=== PATIENT | male | born 1950 | race Caucasian/White ===

== ENCOUNTER 2016-11-21 11:18 | Inpatient (IN) ==
[2016-11-21] MEDS ORDERED: Acetaminophen 325 MG TABLET PO PRN (14:21)
[2016-11-21] MEDS ORDERED: Naloxone 0.4 MG/ML INJ IVP PRN (14:21)
[2016-11-21] MEDS ORDERED: Ondansetron 4 MG/2 ML VIAL IVP PRN (14:21)
[2016-11-21 15:02] LABS: Basophils % 0.3 %; Eosinophils # 0.2 K/mcL (0.0-0.6); Eosinophils % 2.2 %; Hematocrit 42.7 % (37.5-50.1); Hemoglobin 14.5 g/dL (12.9-16.9); Immature Granulocytes % 0.4 % (0-4); Lymphocytes # 1.7 K/mcL (0.6-4.6); Mean Corpuscular Hemoglobin 28.2 pg (28.0-33.3); Mean Corpuscular Volume 83.1 fL (83.0-100.0); Mean Platelet Volume 9.4 fL (9.4-12.4); Monocytes # 0.6 K/mcL (0.0-1.3); Monocytes % 5.9 %; Neutrophils # 6.8 K/mcL (1.6-8.9); Platelet Count 220 K/mcL (140-400); Red Blood Count 5.14 M/mcL (4.19-5.50); Red Cell Distribution Width 12.4 % (11.5-14.5); Segmented Neutrophils % 73.2 %
[2016-11-21 15:08] LABS: BUN/Creatinine Ratio 15 (6-26); Blood Urea Nitrogen 19 mg/dL (8-26); Calcium 9.1 mg/dL (8.6-10.8); Carbon Dioxide 26 mEq/L (19-29); Chloride 102 mEq/L (98-109); Glucose 232 mg/dL (70-99); Osmolality,Calculated 292 (280-300); Potassium 4.4 mEq/L (3.5-4.5); Sodium 136 mEq/L (136-145); eGFR For African Americans > 60 (> 60); eGFR For Non-African Americans 56 (> 60)
[2016-11-21] MEDS: *HR* HYDROmorphone (PF) 1 MG/ML SYRINGE IVP PRN ×2 (16:22→20:23)
[2016-11-21] MEDS: Piperacillin/Tazobactam 3.375 GM in D5% in Water (Mini-Bag+) 100 ML IVPB SCH (16:23)
[2016-11-21] MEDS: 0.9 % Sodium Chloride 1,000 ML IVC SCH (16:23)
--- NOTE | 2016-11-21 17:24 | Internal Med History&Physical ---
Date of Encounter: 11/21/16 Time of Encounter: 17:19 Assessment and Plan (1) Uncontrolled type 2 diabetes mellitus Current visit: Yes Status: Acute We will start insulin Levemir, nutritional NovoLog and sliding scale. Check hemoglobin A1c. Hold his oral meds. Qualifiers: Diabetes mellitus complication status: with ophthalmic complications Diabetes mellitus complication detail: with diabetic retinopathy Diabetic retinopathy severity: with unspecified retinopathy severity Diabetes mellitus macular edema: without macular edema Diabetes mellitus chef assistant insulin use: with chef assistant use Laterality: unspecified laterality Qualified Code(s): E11.319 - Type 2 diabetes mellitus with unspecified diabetic retinopathy without macular edema; E11.65 - Type 2 diabetes mellitus with hyperglycemia; Z79.4 - FPC (current) use of insulin (2) COPD (chronic obstructive pulmonary disease) Current visit: Yes Status: Acute Inhaled bronchodilators as needed. No evidence of acute exacerbation. Qualifiers: COPD type: chronic bronchitis Chronic bronchitis type: simple Qualified Code(s): J41.0 - Simple chronic bronchitis (3) Otitis externa of right ear Current visit: No Status: Acute He failed outpatient treatment with ciprofloxacin. Due to uncontrolled diabetes and treatment with steroids which makes him immunosuppressed we'll treat the patient with IV Zosyn to cover Pseudomonas, gram-negative rods and anaerobes and add vancomycin for coverage of gram-positive cocci including MRSA. Follow-up fluid cultures sent from the office and adjust antibiotic therapy accordingly. He is at high risk for morbidity and mortality from complications due to severe ear infection and treatment with IV vancomycin which require intensive blood level monitoring for toxicity. Qualifiers: Otitis externa type: other infective Chronicity: acute Qualified Code(s) : H60.391 - Other infective otitis externa, right ear (4) Mastoiditis of right side Current visit: Yes Status: Acute Given his extension of symptoms to the right side and has had an right-sided headache and tenderness to palpation mastoiditis is a strong consult radiation and therefore will order a CT of the temporal bone to evaluate for this. (5) Otitis media Current visit: Yes Status: Acute Given his severe symptoms otitis media is highly suspected. We will treat him with broad-spectrum IV antibiotics, IV fluids, oral oxycodone and IV hydromorphone for pain. Qualifiers: Otitis media type: suppurative Laterality: right Chronicity: acute Recurrence: not specified as recurrent Spontaneous tympanic membrane rupture: without spontaneous rupture Qualified Code(s): H66.001 - Acute suppurative otitis media without spontaneous rupture of ear drum, right ear (6) DVT prophylaxis Current visit: Yes Status: Acute Encourage early ambulation. He does not require pharmacological prophylaxis as he is fully ambulatory. (7) Essential hypertension Current visit: Yes Status: Acute Resume home meds. Pain control. Internal Medicine - H&P: HPI Admitted From: Direct Admit Plans for Post Hospital Care: Home History of present illness: Mr. Vernon is a 66 year old male with past medical history significant for type 2 diabetes with past medical history who presented to the hospital as a direct admission from ENT office for ear pain. He has been having 1 week of severe right ear pain that for the last 5 days has been getting worse and involving the right side of the jaw, right side of the neck, described as soreness and throbbing, not relieved by pain medication. Denies associated fevers and chills. He states that his hearing in that ear has been getting slightly worse however he has impaired hearing bilaterally. He reports abundant purulent discharge from the right ear. He has been treated with Cipro outpatient for the last 1 week however in spite of that his symptoms have not gotten better. Today he was evaluated by his ENT doctor in the office who drained a large amount of pus from his external ear or canal and referred him for direct admission due to failure to respond to outpatient antibiotics. He reports vision impairment chronically, reports nausea, reports depression, chronic shortness of breath and dyspnea on exertion secondary to interstitial lung disease. Reports seasonal allergies. A 10 point review of systems was negative except per the history of present illness. Past medical history significant for essential hypertension type 2 diabetes chronic interstitial lung disease requiring long-term steroid therapy. Past surgical history knee insert and shoulder surgery Family history patient's mother suffered with CA at age 75 patient's father suffered with cancer. Patient has multiple siblings who suffered a colon cancer and bone cancer. Social history: Denies tobacco alcohol and drug use. Past Med Surg Social Fam HX - Past Medical History Medical history: COPD, diabetes, hyperlipidemia, hypertension Psychiatric history: anxiety, depression - Social History Smoking Status: Never smoker Smokeless Tobacco Status: No Alcohol use: none Drug use: none - Family History Mother Hx Family Cardiac Disorders: Yes (HTN, CHF) Hx Family Respiratory Disorders: Yes (COPD) Hx Family GI Disorders: No Hx Family Endocrine Disorder: No Hx Family Neuromuscular Disorders: No Hx Family Neurologic Disorders: No Hx Family HEENT Disorders: No Hx Family Autoimmune Disorders: No Father Hx Family Cardiac Disorders: No Hx Family Respiratory Disorders: No Hx Family Cancer: Yes (Bone, Skin, Lung) Hx Family GI Disorders: No Hx Family Endocrine Disorder: No Hx Family Neuromuscular Disorders: No Hx Family Neurologic Disorders: No Hx Family HEENT Disorders: No Hx Family Autoimmune Disorders: No Internal Medicine - H&P: Meds Albuterol Sulfate [Proair Hfa] 2 puff IH Q6H PRN 01/15/16 [History] Bupropion HCl [Wellbutrin Xl] 300 mg PO QAM 01/15/16 [History] Fluticasone/Salmeterol [Advair 250-50 Diskus] 1 each IH BID 01/15/16 [History] Furosemide [Lasix] 40 mg PO DAILY 01/15/16 [History] Glimepiride [Amaryl] 2 mg PO BID 01/15/16 [History] Insulin DETEMIR [Levemir Flextouch] 150 unit SQ BID 01/15/16 [History] Insulin LISPRO [Humalog Kwikpen U-100] 102 unit SQ BID 01/15/16 [History] Loratadine [Claritin] 10 mg PO DAILY 01/15/16 [History] Losartan Potassium [Cozaar] 100 mg PO DAILY 01/15/16 [History] Metformin HCl [Glucophage Xr] 1,000 mg PO BID 01/15/16 [History] Mometasone Furoate [Nasonex] 2 spray NS DAILY PRN 01/15/16 [History] Omeprazole [PriLOSEC] 40 mg PO DAILY 01/15/16 [History] Oxygen 4 l NS AD 01/15/16 [History] Potassium Chloride [K-Tab ER] 20 meq PO DAILY 01/15/16 [History] Ranitidine HCl [Zantac] 150 mg PO BID 01/15/16 [History] Saxagliptin HCl [Onglyza] 5 mg PO DAILY 01/15/16 [History] Simvastatin [Zocor] 40 mg PO DAILY 01/15/16 [History] Tizanidine HCl 4 mg PO HS PRN 01/15/16 [History] Ciprofloxacin [Cipro] 500 mg PO BID #20 tablet 11/16/16 [Rx] OxyCODONE/APAP 10/325 [Percocet 10/325 MG] 1 each PO Q6HR PRN #15 tablet [Rx] Allergies No Known Allergies Allergy (Verified 01/15/16 11:43) All Systems PM: A 10-system review of systems was performed and is negative for pertinent findings except as documented above in the HPI. - Constitutional Vitals: Temp Pulse Resp BP Pulse Ox 98.3 F 80 16 180/84 95 11/21/16 16:06 11/21/16 16:06 11/21/16 16:06 11/21/16 16:06 11/21/16 16:06 General appearance: Present: A&O X 3 - Eye Eye exam: Present: PERRL, conjuntiva pink, sclera anicteric Pupils: Present: PERRL - ENT Additional comments: Normal TM on the left, normal left external auditory canal. Right ear with small amount of pus draining from the external ear canal. motion tenderness of the right earlobe. tenderness to palpation of the mastoid. - Respiratory Respiratory exam: Present: CTAB. Absent: accessory muscle use, rales, rhonchi, wheezes - Cardiovascular Cardiovascular exam: Present: RRR, +S1, +S2. Absent: diastolic murmur, gallop, rubs, systolic murmur - GI/Abdominal GI/Abdominal exam: Present: normal bowel sounds, soft, no peritoneal signs. Absent: distended, tenderness - Extremities Exam Extremities exam: Present: warm, radial pulses palpable and symetrical. Absent : calf tenderness, cyanotic, pedal edema - Neurological Exam Neurological exam: Present: CN II-XII intact, oriented X3, no focal deficits. Absent: pronater drift, facial droop, speech deficit - Skin Skin exam: Present: dry, intact Internal Med - H&P Results - Labs CBC & Chem 7: 11/21/16 14:44 11/21/16 14:44 Labs: Short CBC 11/21/16 Range/Units 14:44 WBC 9.3 (4.3-11.1) K/mcL Hgb 14.5 (12.9-16.9) g/dL Hct 42.7 (37.5-50.1) % Plt Count 220 (140-400) K/mcL Neutrophils # 6.8 (1.6-8.9) K/mcL BMP 11/21/16 14:44 Sodium 136 Potassium 4.4 Chloride 102 Carbon Dioxide 26 BUN 19 Creatinine 1.30 H Glucose 232 H Calcium 9.1 - EKG Data -: EKG Interpreted by Myself (From prior record performed 11/16/2016, nonspecific T-wave changes) EKG shows normal: sinus rhythm (Rate 78), axis Rate: normal
[2016-11-21] MEDS: *HR* OxyCODONE Immed Rel 5 MG TABLET PO PRN (18:22)
[2016-11-21] MEDS: Ciprofloxacin/Dex *EAR* Susp 7.5 ML BOTTLE RIGHT EAR SCH (20:54)
[2016-11-22] MEDS: *HR* HYDROmorphone (PF) 1 MG/ML SYRINGE IVP PRN ×4 (00:18→20:12)
[2016-11-22] MEDS: Piperacillin/Tazobactam 3.375 GM in D5% in Water (Mini-Bag+) 100 ML IVPB SCH ×3 (00:23→17:26)
[2016-11-22] MEDS: *HR* OxyCODONE Immed Rel 5 MG TABLET PO PRN ×2 (01:16→08:15)
[2016-11-22] MEDS: 0.9 % Sodium Chloride 1,000 ML IVC SCH (08:12)
[2016-11-22] MEDS: Ciprofloxacin/Dex *EAR* Susp 7.5 ML BOTTLE RIGHT EAR SCH ×2 (08:13→20:14)
[2016-11-22] MEDS ORDERED: Benzonatate 100 MG CAPSULE PO PRN (08:42)
[2016-11-22] MEDS ORDERED: NON-FORMULARY MEDICATION 1 EACH EACH (Mometasone Furoate [Nasonex] 2 SPRAY) NS PRN (08:42)
[2016-11-22] MEDS ORDERED: tiZANidine 4 MG TABLET PO PRN (08:42)
[2016-11-22] MEDS ORDERED: Dextrose Gel 15 GM PO PRN ×2 (08:44)
[2016-11-22] MEDS ORDERED: *HR* Dextrose 50 % in Water (Syg) 50 ML SYRINGE IVP PRN (08:44)
[2016-11-22] MEDS ORDERED: D5% in Water 1,000 ML IV PRN (08:44)
[2016-11-22] MEDS ORDERED: Vancomycin 1,000 MG in D5% in Water 250 ML IVPB SCH (09:00)
[2016-11-22 09:20] LABS: Basophils % 0.4 %; Eosinophils # 0.2 K/mcL (0.0-0.6); Eosinophils % 2.6 %; Hematocrit 42.7 % (37.5-50.1); Hemoglobin 14.2 g/dL (12.9-16.9); Immature Granulocytes % 0.4 % (0-4); Immature Platelets 2.6 % (1.1-6.1); Lymphocytes # 1.7 K/mcL (0.6-4.6); Mean Corpuscular HGB Conc 33.3 g/dL (31.6-35.5); Mean Corpuscular Hemoglobin 28.1 pg (28.0-33.3); Mean Corpuscular Volume 84.4 fL (83.0-100.0); Mean Platelet Volume 9.3 fL (9.4-12.4); Monocytes # 0.5 K/mcL (0.0-1.3); Monocytes % 6.6 %; Neutrophils # 5.7 K/mcL (1.6-8.9); Platelet Count 233 K/mcL (140-400); Red Blood Count 5.06 M/mcL (4.19-5.50); Red Cell Distribution Width 12.6 % (11.5-14.5)
[2016-11-22 09:34] LABS: BUN/Creatinine Ratio 12 (6-26); Blood Urea Nitrogen 14 mg/dL (8-26); Calcium 8.9 mg/dL (8.6-10.8); Carbon Dioxide 29 mEq/L (19-29); Chloride 98 mEq/L (98-109); Glucose 283 mg/dL (70-99); Magnesium 1.9 mg/dL (1.6-2.6); Osmolality,Calculated 287 (280-300); Potassium 4.6 mEq/L (3.5-4.5); Sodium 133 mEq/L (136-145); eGFR For African Americans > 60 (> 60); eGFR For Non-African Americans > 60 (> 60)
[2016-11-22] MEDS: Loratadine 10 MG TABLET PO SCH (10:32)
[2016-11-22] MEDS: Furosemide 40 MG TABLET PO SCH (10:32)
[2016-11-22] MEDS: BuPROPion XL (24 HR) 150 MG TABLET PO SCH (10:33)
[2016-11-22] MEDS: Azelastine 0.1% Nasal Spray 30 ML BOTTLE NS SCH ×2 (10:33→20:14)
[2016-11-22] MEDS: Fluticasone Propionate Nasal 50 MCG/SPRAY BOTTLE NS SCH (10:33)
[2016-11-22] MEDS ORDERED: Vancomycin 1,500 MG in D5% in Water 250 ML IVPB ONE (11:00)
[2016-11-22] MEDS: Budesonide/Formoterol 80/4.5 MDI IH SCH ×2 (11:47→20:51)
[2016-11-22] MEDS: Insulin LISPRO 300 UNITS/3 ML VIAL SQ SCH ×3 (11:52→20:25)
[2016-11-22] MEDS: Insulin DETEMIR 100 UNIT/ML X5UNITS SQ SCH ×2 (11:52→20:12)
--- NOTE | 2016-11-22 13:42 | ENT - Progress Note ---
Date of Encounter: 11/22/16 Time of Encounter: 10:30 - Assessment and Plan (1) Otitis media Current Visit: Yes Status: Acute Persistent R AOM and R OE. On Ciprodex and Zosyn/Vanc. Awaiting culture results. Still looks the same as yesterday. CT didn't show coalescence of the mastoid or even complete opacification. No soft tissue disease. No facial nerve effect or meingeal signs. Normal WBC and afebrile. Sugars still in the 200's. 1. Continue IV ABx, drop tx 2. Await culture results 3. Ambulate 4. Will continue to follow Please call with questions. Giacomo Whatley MD [phone] Qualifiers: Otitis media type: suppurative Laterality: right Chronicity: acute Recurrence: not specified as recurrent Spontaneous tympanic membrane rupture: without spontaneous rupture Qualified Code(s): H66.001 - Acute suppurative otitis media without spontaneous rupture of ear drum, right ear Subjective Patient reports: no new complaints, still having pain, other Narrative: Patient still w/ drainage from the R ear, has had 2 abx drop treatments since being here. Had CT head/neck last night (didn't do T-bone). Objective Initial Vital Signs Temp Pulse Resp BP Pulse Ox 97.7 F 74 16 203/83 96 11/21/16 11:53 11/21/16 11:53 11/21/16 11:53 11/21/16 11:53 11/21/16 11:53 - General physical appearance moderate distress - ENT Other (R otorrhea and mild-mod canal swelling persistent) - Neck other (No meningeal signs on testing of neck flexion) - Neurologic other (FN intact) - Labs 11/22/16 09:06 11/22/16 09:06 Diabetes panel 11/21/16 11/22/16 Range/Units 14:44 09:06 Sodium 136 133 L (136-145) mEq/L Potassium 4.4 4.6 H (3.5-4.5) mEq/L Chloride 102 98 (98-109) mEq/L Carbon Dioxide 26 29 (19-29) mEq/L BUN 19 14 (8-26) mg/dL Creatinine 1.30 H 1.18 (0.72-1.25) mg/dL Glucose 232 H 283 H (70-99) mg/dL Calcium 9.1 8.9 (8.6-10.8) mg/dL Calcium panel 11/21/16 11/22/16 Range/Units 14:44 09:06 Calcium 9.1 8.9 (8.6-10.8) mg/dL Phosphorus 3.0 (2.3-4.7) mg/dL Pituitary panel 11/21/16 11/22/16 Range/Units 14:44 09:06 Sodium 136 133 L (136-145) mEq/L Potassium 4.4 4.6 H (3.5-4.5) mEq/L Chloride 102 98 (98-109) mEq/L Carbon Dioxide 26 29 (19-29) mEq/L BUN 19 14 (8-26) mg/dL Creatinine 1.30 H 1.18 (0.72-1.25) mg/dL Glucose 232 H 283 H (70-99) mg/dL Calcium 9.1 8.9 (8.6-10.8) mg/dL Adrenal panel 11/21/16 11/22/16 Range/Units 14:44 09:06 Sodium 136 133 L (136-145) mEq/L Potassium 4.4 4.6 H (3.5-4.5) mEq/L Chloride 102 98 (98-109) mEq/L Carbon Dioxide 26 29 (19-29) mEq/L BUN 19 14 (8-26) mg/dL Creatinine 1.30 H 1.18 (0.72-1.25) mg/dL Glucose 232 H 283 H (70-99) mg/dL Calcium 9.1 8.9 (8.6-10.8) mg/dL Consult Discharge Plan - Plan Referrals: Louie Perez MD [Primary Care Provider] -
--- NOTE | 2016-11-22 15:10 | Internal Med Progress Note ---
Date of Encounter: 11/22/16 Time of Encounter: 15:08 - Assessment and plan (1) Otitis media Current Visit: Yes Status: Acute Assessment and plan: ENT consultation appreciated with Dr. Whatley Will continue IV abx and drop tx f/u cultures Pain control Qualifiers: Otitis media type: suppurative Laterality: right Chronicity: acute Recurrence: not specified as recurrent Spontaneous tympanic membrane rupture: without spontaneous rupture Qualified Code(s): H66.001 - Acute suppurative otitis media without spontaneous rupture of ear drum, right ear (2) Mastoiditis of right side Current Visit: Yes Status: Acute Assessment and plan: Will obtain CT of the temporal bones for further evaluation (3) COPD (chronic obstructive pulmonary disease) Current Visit: Yes Status: Acute Assessment and plan: Not in acute exacerbation continue bronchodilator support as needed continue home dosing of O2 supplementation as needed Bipap at bedtime Qualifiers: COPD type: chronic bronchitis Chronic bronchitis type: simple Qualified Code(s): J41.0 - Simple chronic bronchitis (4) DVT prophylaxis Current Visit: Yes Status: Acute Assessment and plan: Heparin SQ (5) Essential hypertension Current Visit: Yes Status: Acute Assessment and plan: Started home medications Added Hydralazine 10mg IV q6h PRN SBP>160 continue to monitor BP closely (6) Uncontrolled type 2 diabetes mellitus Current Visit: Yes Status: Acute Assessment and plan: Restarted home insulin regimen will continue to monitor fingerstick and blood glucose continue sliding scale insulin algorithm Qualifiers: Diabetes mellitus complication status: with ophthalmic complications Diabetes mellitus complication detail: with diabetic retinopathy Diabetic retinopathy severity: with unspecified retinopathy severity Diabetes mellitus macular edema: without macular edema Diabetes mellitus assisted insulin use: with assisted use Laterality: unspecified laterality Qualified Code(s): E11.319 - Type 2 diabetes mellitus with unspecified diabetic retinopathy without macular edema; E11.65 - Type 2 diabetes mellitus with hyperglycemia; Z79.4 - skilled nursing (current) use of insulin - Subjective Interval history: Patient seen and examined with daughter present at bedside. Resting in chair and states he feels slightly better compared to the previous day. Continues to have purulent discharge from the right ear. 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 - Constitutional Vitals: Temp Pulse Resp BP Pulse Ox 98.1 F 72 18 171/78 95 11/22/16 11:26 11/22/16 11:26 11/22/16 11:47 11/22/16 11:26 11/22/16 11:47 General appearance: Present: cooperative, A&O X 3, pleasant, no acute distress, obese, answers questions appropriately - Head Head exam: Present: atraumatic, normocephalic - Eye Eye exam: Present: conjuntiva pink, sclera anicteric - ENT Additional comments: purulent discharge noted from right ear - Respiratory Respiratory exam: Present: CTAB. Absent: respiratory distress, wheezes - Cardiovascular Cardiovascular exam: Present: RRR, +S1, +S2. Absent: diastolic murmur, gallop, rubs, systolic murmur - GI/Abdominal GI/Abdominal exam: Present: normal bowel sounds, soft, no peritoneal signs. Absent: distended, tenderness - Extremities Exam Extremities exam: Present: warm, radial pulses palpable and symetrical. Absent : calf tenderness, cyanotic, pedal edema - Neurological Exam Neurological exam: Present: alert, oriented X3 - Psychiatric Psychiatric exam: Present: normal affect, normal mood Internal Medicine: Result - Labs CBC & Chem 7: 11/22/16 09:06 11/22/16 09:06 Labs: Short CBC 11/22/16 Range/Units 09:06 WBC 8.2 (4.3-11.1) K/mcL Hgb 14.2 (12.9-16.9) g/dL Hct 42.7 (37.5-50.1) % Plt Count 233 (140-400) K/mcL Neutrophils # 5.7 (1.6-8.9) K/mcL BMP 11/21/16 11/22/16 14:44 09:06 Sodium 136 133 L Potassium 4.4 4.6 H Chloride 102 98 Carbon Dioxide 26 29 BUN 19 14 Creatinine 1.30 H 1.18 Glucose 232 H 283 H Calcium 9.1 8.9 - Impressions Impressions Head CT 11/21/16 17:11 IMPRESSION: No acute intracranial abnormality. Severe right mastoiditis. Also complete opacification of the right middle ear and some of the external auditory canal. D/ / Ronen Hinton MD / Ronen Hinton MD Interpreting Provider: Ronen Hinton MD Soft Tissue Neck CT 11/21/16 17:13 IMPRESSION: Limited noncontrast exam. No obvious acute abnormality of the neck identified. Imaging findings consistent with the history of otitis externa and otomastoiditis. Consider CT of the temporal bones for further evaluation. D/ / Earl Talamantes MD / Earl Talamantes MD Interpreting Provider: Earl Talamantes MD Consult Discharge Plan - Plan Referrals: Louie Perez MD [Primary Care Provider] -
[2016-11-22] MEDS: *HR* Heparin 5,000 UNIT/ML VIAL SQ SCH (17:25)
[2016-11-22] MEDS: traZODone 50 MG TABLET PO SCH (20:12)
[2016-11-23] MEDS: Piperacillin/Tazobactam 3.375 GM in D5% in Water (Mini-Bag+) 100 ML IVPB SCH ×4 (01:03→23:58)
[2016-11-23 05:11] LABS: Basophils # 0.1 K/mcL (0.0-0.2); Basophils % 0.5 %; Eosinophils # 0.2 K/mcL (0.0-0.6); Eosinophils % 1.4 %; Hematocrit 42.7 % (37.5-50.1); Hemoglobin 14.7 g/dL (12.9-16.9); Immature Granulocytes % 0.7 % (0-4); Lymphocytes # 1.6 K/mcL (0.6-4.6); Lymphocytes % 15.1 %; Mean Corpuscular HGB Conc 34.4 g/dL (31.6-35.5); Mean Corpuscular Hemoglobin 28.9 pg (28.0-33.3); Mean Corpuscular Volume 83.9 fL (83.0-100.0); Mean Platelet Volume 9.8 fL (9.4-12.4); Monocytes # 0.7 K/mcL (0.0-1.3); Monocytes % 6.4 %; Neutrophils # 8.1 K/mcL (1.6-8.9); Platelet Count 241 K/mcL (140-400); Red Blood Count 5.09 M/mcL (4.19-5.50); Red Cell Distribution Width 12.4 % (11.5-14.5); Segmented Neutrophils % 75.9 %
[2016-11-23 05:43] LABS: BUN/Creatinine Ratio 14 (6-26); Blood Urea Nitrogen 18 mg/dL (8-26); Calcium 9.2 mg/dL (8.6-10.8); Carbon Dioxide 25 mEq/L (19-29); Chloride 99 mEq/L (98-109); Glucose 262 mg/dL (70-99); Magnesium 1.9 mg/dL (1.6-2.6); Osmolality,Calculated 291 (280-300); Phosphorous 3.3 mg/dL (2.3-4.7); Potassium 4.2 mEq/L (3.5-4.5); Sodium 135 mEq/L (136-145); eGFR For African Americans > 60 (> 60); eGFR For Non-African Americans 58 (> 60)
[2016-11-23] MEDS: *HR* Heparin 5,000 UNIT/ML VIAL SQ SCH ×2 (06:07→18:07)
[2016-11-23] MEDS: Azelastine 0.1% Nasal Spray 30 ML BOTTLE NS SCH ×2 (08:01→21:09)
[2016-11-23] MEDS: Ciprofloxacin/Dex *EAR* Susp 7.5 ML BOTTLE RIGHT EAR SCH ×2 (08:01→21:09)
[2016-11-23] MEDS: Fluticasone Propionate Nasal 50 MCG/SPRAY BOTTLE NS SCH (08:01)
[2016-11-23] MEDS: BuPROPion XL (24 HR) 150 MG TABLET PO SCH (08:02)
[2016-11-23] MEDS: Furosemide 40 MG TABLET PO SCH (08:02)
[2016-11-23] MEDS: Loratadine 10 MG TABLET PO SCH (08:02)
[2016-11-23] MEDS: Insulin LISPRO 300 UNITS/3 ML VIAL SQ SCH ×7 (08:03→21:10)
[2016-11-23] MEDS: Budesonide/Formoterol 80/4.5 MDI IH SCH ×2 (08:10→19:51)
[2016-11-23] MEDS ORDERED: Insulin DETEMIR 100 UNIT/ML X5UNITS SQ SCH ×3 (09:00)
[2016-11-23] MEDS: Insulin DETEMIR 100 UNIT/ML X5UNITS SQ SCH ×4 (10:31→21:11)
[2016-11-23] MEDS: Vancomycin 1,250 MG in D5% in Water 250 ML IVPB SCH (12:20)
--- NOTE | 2016-11-23 13:55 | Internal Med Progress Note ---
Date of Encounter: 11/23/16 Time of Encounter: 13:00 - Assessment and plan (1) Otitis media Current Visit: Yes Status: Acute Assessment and plan: ENT consultation appreciated with Dr. Whatley Will continue IV abx and drop tx f/u cultures Pain control (adjusted pain medications) NPO after midnight for possible ear tube placement if symptoms persist Qualifiers: Otitis media type: suppurative Laterality: right Chronicity: acute Recurrence: not specified as recurrent Spontaneous tympanic membrane rupture: without spontaneous rupture Qualified Code(s): H66.001 - Acute suppurative otitis media without spontaneous rupture of ear drum, right ear (2) Mastoiditis of right side Current Visit: Yes Status: Acute Assessment and plan: CT of internal auditory canal noted: NO erosive changes reported continue management as listed above (3) COPD (chronic obstructive pulmonary disease) Current Visit: Yes Status: Acute Assessment and plan: Not in acute exacerbation continue bronchodilator support as needed continue home dosing of O2 supplementation as needed Bipap at bedtime Qualifiers: COPD type: chronic bronchitis Chronic bronchitis type: simple Qualified Code(s): J41.0 - Simple chronic bronchitis (4) DVT prophylaxis Current Visit: Yes Status: Acute Assessment and plan: Heparin SQ (5) Essential hypertension Current Visit: Yes Status: Acute Assessment and plan: continue home medications continue Hydralazine 10mg IV q6h PRN SBP>160 continue to monitor BP closely (6) Uncontrolled type 2 diabetes mellitus Current Visit: Yes Status: Acute Assessment and plan: Hyperglycemia persists despite basal insulin coverage Increased Levemir to 118units BID according to the additional insulin coverage required over the last 24hours Added Humalog 5units TIDAC will continue to monitor fingerstick and blood glucose continue sliding scale insulin algorithm Qualifiers: Diabetes mellitus complication status: with ophthalmic complications Diabetes mellitus complication detail: with diabetic retinopathy Diabetic retinopathy severity: with unspecified retinopathy severity Diabetes mellitus macular edema: without macular edema Diabetes mellitus care home insulin use: with terminal supervisor use Laterality: unspecified laterality Qualified Code(s): E11.319 - Type 2 diabetes mellitus with unspecified diabetic retinopathy without macular edema; E11.65 - Type 2 diabetes mellitus with hyperglycemia; Z79.4 - assisted (current) use of insulin - Subjective Interval history: Patient seen and examined with daughter present at bedside. Reports of feeling better compared to the previous day. I had a detailed discussion with Dr. Whatley in regards to patient's care plan. It is of a concern that despite ABX therapy patient continues to require consistent pain medications and if symptoms are not improving, patient may benefit from an Ear tube. at this time, will d/c dilaudid and start Oxycodone 7.5/325mg PO q4h prn pain and maintain NPO after midnight for possible procedure in am. - Constitutional Vitals: Temp Pulse Resp BP Pulse Ox 97.9 F 87 16 160/84 94 L 11/23/16 10:50 11/23/16 10:50 11/23/16 10:50 11/23/16 10:50 11/23/16 10:50 General appearance: Present: cooperative, A&O X 3, pleasant, no acute distress, obese, answers questions appropriately - Head Head exam: Present: atraumatic - ENT Additional comments: purulent discharge draining from right ear - Respiratory Respiratory exam: Present: CTAB. Absent: accessory muscle use, rales, rhonchi, wheezes - Cardiovascular Cardiovascular exam: Present: RRR, +S1, +S2. Absent: diastolic murmur, gallop, rubs, systolic murmur - GI/Abdominal GI/Abdominal exam: Present: normal bowel sounds, soft. Absent: distended, tenderness - Extremities Exam Extremities exam: Present: warm, radial pulses palpable and symetrical. Absent : pedal edema - Neurological Exam Neurological exam: Present: alert, oriented X3 - Psychiatric Psychiatric exam: Present: normal affect, normal mood Internal Medicine: Result - Labs CBC & Chem 7: 11/23/16 03:47 11/23/16 03:47 Labs: Short CBC 11/23/16 Range/Units 03:47 WBC 10.7 (4.3-11.1) K/mcL Hgb 14.7 (12.9-16.9) g/dL Hct 42.7 (37.5-50.1) % Plt Count 241 (140-400) K/mcL Neutrophils # 8.1 (1.6-8.9) K/mcL BMP 11/23/16 03:47 Sodium 135 L Potassium 4.2 Chloride 99 Carbon Dioxide 25 BUN 18 Creatinine 1.25 Glucose 262 H Calcium 9.2 - Impressions Impressions Internal Auditory Canal CT 11/22/16 15:14 IMPRESSION: 1. Findings compatible with right otitis externa and otomastoiditis. No erosive osseous changes. 2. Normal CT of the left temporal bone. D/ / Giacomo Young MD / Giacomo Young MD Interpreting Provider: Giacomo Young MD Consult Discharge Plan - Plan Referrals: Louie Perez MD [Primary Care Provider] - 11/30/16 3:00 pm
--- NOTE | 2016-11-23 19:23 | Anesthesia Evaluation PreOp ---
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: Other (Anxiety/Depression maintained on WEllbutrin) Other Medical History: Diabetes Type II (Uncontrolled DM maintained on Metformin , Humalog, Onglyza, Levemir), GERD (maintained on Omeprazol, Ranitidine), Other (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) Anesthesia History: No Prior Anesthetic Complications, Past Anesthesia (Knee scope, Shoulder surgery) Alcohol Use: none Drug use: none Medications and Allergies Albuterol Sulfate [Proair Hfa] 2 puff IH Q6H PRN 01/15/16 [History] Bupropion HCl [Wellbutrin Xl] 300 mg PO QAM 01/15/16 [History] Fluticasone/Salmeterol [Advair 250-50 Diskus] 1 each IH BID 01/15/16 [History] Furosemide [Lasix] 40 mg PO DAILY 01/15/16 [History] Glimepiride [Amaryl] 2 mg PO BID 01/15/16 [History] Insulin DETEMIR [Levemir Flextouch] 150 unit SQ BID 01/15/16 [History] Insulin LISPRO [Humalog Kwikpen U-100] 102 unit SQ BID 01/15/16 [History] Loratadine [Claritin] 10 mg PO DAILY 01/15/16 [History] Losartan Potassium [Cozaar] 100 mg PO DAILY 01/15/16 [History] Mometasone Furoate [Nasonex] 2 spray NS DAILY PRN 01/15/16 [History] Omeprazole [PriLOSEC] 40 mg PO DAILY 01/15/16 [History] Oxygen 4 l NS AD 01/15/16 [History] Potassium Chloride [K-Tab ER] 20 meq PO DAILY 01/15/16 [History] Ranitidine HCl [Zantac] 150 mg PO BID 01/15/16 [History] Saxagliptin HCl [Onglyza] 5 mg PO DAILY 01/15/16 [History] Simvastatin [Zocor] 40 mg PO DAILY 01/15/16 [History] Tizanidine HCl 4 mg PO HS PRN 01/15/16 [History] Ciprofloxacin [Cipro] 500 mg PO BID #20 tablet 11/16/16 [Rx] OxyCODONE/APAP 10/325 [Percocet 10/325 MG] 1 each PO Q6HR PRN #15 tablet [Rx] Azelastine 0.1% Nasal [place] [Astelin] 2 spray NS BID 11/21/16 [History] Benzonatate [Tessalon] 200 mg PO TID PRN 11/21/16 [History] Fluticasone Propionate Nasal [Flonase] 2 spray NS DAILY 11/21/16 [History] HYDROcodone BIT/Homatropine LQ [Hycodan Syrup] 5 mg PO HS PRN 11/21/16 [History] Ibuprofen [Motrin] 600 mg PO TID PRN 11/21/16 [History] Metformin HCl [Glucophage] 1,000 mg PO BID 11/21/16 [History] Omalizumab [XOLAIR (For Outpatient Infusion)] 150 mg SQ Q2W 11/21/16 [History] Trazodone HCl 100 mg PO HS 11/21/16 [History] Allergies lisinopril Adverse Reaction (Verified 11/21/16 20:11) Swelling of Lip/Tongue/Throat - Meds/Allergy Pre-op Review Medications Reviewed: Yes Allergies Reviewed: Yes Anesthesia Results - Labs 11/23/16 03:47 11/23/16 03:47 Laboratory Tests 01/15/16 21:25 Est Mean Plasma Glucose 209 Hemoglobin A1c 8.9 H Laboratory Results WBC 10.7 K/mcL (4.3-11.1) 11/23/16 03:47 RBC 5.09 M/mcL (4.19-5.50) 11/23/16 03:47 Hgb 14.7 g/dL (12.9-16.9) 11/23/16 03:47 Hct 42.7 % (37.5-50.1) 11/23/16 03:47 MCV 83.9 fL (83.0-100.0) 11/23/16 03:47 MCH 28.9 pg (28.0-33.3) 11/23/16 03:47 MCHC 34.4 g/dL (31.6-35.5) 11/23/16 03:47 RDW 12.4 % (11.5-14.5) 11/23/16 03:47 Plt Count 241 K/mcL (140-400) 11/23/16 03:47 MPV 9.8 fL (9.4-12.4) 11/23/16 03:47 Immature Gran % 0.7 % (0-4) 11/23/16 03:47 Seg Neutrophils % 75.9 % 11/23/16 03:47 Lymphocytes % 15.1 % 11/23/16 03:47 Monocytes % 6.4 % 11/23/16 03:47 Eosinophils % 1.4 % 11/23/16 03:47 Basophils % 0.5 % 11/23/16 03:47 Neutrophils # 8.1 K/mcL (1.6-8.9) 11/23/16 03:47 Lymphocytes # 1.6 K/mcL (0.6-4.6) 11/23/16 03:47 Monocytes # 0.7 K/mcL (0.0-1.3) 11/23/16 03:47 Eosinophils # 0.2 K/mcL (0.0-0.6) 11/23/16 03:47 Basophils # 0.1 K/mcL (0.0-0.2) 11/23/16 03:47 Immature Plt Fraction 2.6 % (1.1-6.1) 11/22/16 09:06 Sodium 135 mEq/L (136-145) L 11/23/16 03:47 Potassium 4.2 mEq/L (3.5-4.5) 11/23/16 03:47 Chloride 99 mEq/L (98-109) 11/23/16 03:47 Carbon Dioxide 25 mEq/L (19-29) 11/23/16 03:47 BUN 18 mg/dL (8-26) 11/23/16 03:47 Creatinine 1.25 mg/dL (0.72-1.25) 11/23/16 03:47 Est GFR ( Amer) > 60 (> 60) 11/23/16 03:47 Est GFR (Non-Af Amer) 58 (> 60) L 11/23/16 03:47 BUN/Creatinine Ratio 14 (6-26) 11/23/16 03:47 Glucose 262 mg/dL (70-99) H 11/23/16 03:47 POC Glucose 356 (58-89) H 11/23/16 16:34 Calculated Osmolality 291 (280-300) 11/23/16 03:47 Calcium 9.2 mg/dL (8.6-10.8) 11/23/16 03:47 Phosphorus 3.3 mg/dL (2.3-4.7) 11/23/16 03:47 Magnesium 1.9 mg/dL (1.6-2.6) 11/23/16 03:[address] 11/21/16 17:11 IMPRESSION: No acute intracranial abnormality. Severe right mastoiditis. Also complete opacification of the right middle ear and some of the external auditory canal. D/ / Ronen Hinton MD / Ronen Hinton MD Interpreting Provider: Ronen Hinton MD Soft Tissue Neck CT 11/21/16 17:13 IMPRESSION: Limited noncontrast exam. No obvious acute abnormality of the neck identified. Imaging findings consistent with the history of otitis externa and otomastoiditis. Consider CT of the temporal bones for further evaluation. D/ / Earl Talamantes MD / Earl Talamantes MD Interpreting Provider: Earl Talamantes MD Internal Auditory Canal CT 11/22/16 15:14 IMPRESSION: 1. Findings compatible with right otitis externa and otomastoiditis. No erosive osseous changes. 2. Normal CT of the left temporal bone. D/ / Giacomo Young MD / Giacomo Young MD Interpreting Provider: Giacomo Young MD - Imaging EKG: image reviewed (78bpm SR, Nons-specific T wave abnormality) Anesthesia Exam Vital Signs Temp Pulse Resp BP Pulse Ox 11/23/16 19:09 98.1 F 85 14 153/75 95 11/23/16 14:53 97.9 F 93 16 157/78 94 L 11/23/16 10:50 97.9 F 87 16 160/84 94 L 11/23/16 08:13 17 95 11/23/16 08:00 95 11/23/16 07:38 98.2 F 77 17 150/77 95 11/23/16 04:24 98.0 F 80 16 153/67 95 11/22/16 23:15 98.2 F 78 16 166/78 95 11/22/16 20:52 18 97 11/22/16 20:21 98.1 F 96 12 164/69 95 Intake and Output 11/23/16 11/23/16 11/23/16 07:59 15:59 23:59 Intake Total 100 / 100 830 / 830 240 / 240 Balance 100 / 100 830 / 830 240 / 240 Intake: IV Fluids 100 / 100 350 / 350 Zosyn 3.375 GM In 100 / 100 100 / 100 Dextrose 5% (Minibag+) 100 ML 100 ML @ 25 mls/hr IVPB Q8HR [facility] Rx#: [id number] Vancocin 1,250 MG In 250 / 250 Dextrose 5% 250 ML @ 166. 67 mls/hr IVPB Q24H [facility] Rx#:[id number] Oral 480 / 480 240 / 240 Other: Meal Lunch Dinner Percent of Meal Consumed 100% 100% Weight 98.928 kg Blood Glucose* 280 395 356 Patient Weight 11/23/16 23:59 Weight 98.928 kg Height: 5'6" Weight: 218# BMI = 35 - HEENT Pupil (Motor): Pupils equal, EOMI Mallampati: III (GLIDESCOPE) Teeth: Normal (Fair dentition) Oral Opening: Greater than 3 - PARTITION SETTER LOC: Oriented PARTITION SETTER Motor: Normal RUE, Normal LUE, Normal RLE, Normal LLE, Normal Face PARTITION SETTER Sensory: Normal: RUE, LUE, RLE, LLE, Face - Cardiac Rhythm: Regular Murmur: None - Pulmonary Breath Sounds: bilateral Clear Respiratory Effort: Symmetrical Anesthesia Assess/Plan ASA Score: 3 (Uncontrolled DM, HTN, Chol, COPD, Obesity) Modified [place] Scale for Level of Consciousness: Cooperative, oriented, and tranquil Anesthetic Plan: General Monitoring Plan: Standard Monitors Recovery Plan: PACU Anes Supervising Prov Stmt: Pt seen/evaluated, R&B Discussed, questions answered and consent obtained. Mohan Goff MD
[2016-11-23] MEDS: traZODone 50 MG TABLET PO SCH (21:11)
[2016-11-23] MEDS: *HR* OxyCODONE/APAP 7.5/325 TABLET PO PRN (21:21)
[2016-11-24 04:52] LABS: Basophils # 0.1 K/mcL (0.0-0.2); Basophils % 0.6 %; Eosinophils # 0.2 K/mcL (0.0-0.6); Eosinophils % 2.6 %; Hematocrit 41.6 % (37.5-50.1); Hemoglobin 14.2 g/dL (12.9-16.9); Immature Granulocytes % 0.4 % (0-4); Lymphocytes % 33.9 %; Mean Corpuscular HGB Conc 34.1 g/dL (31.6-35.5); Mean Corpuscular Hemoglobin 28.6 pg (28.0-33.3); Mean Corpuscular Volume 83.9 fL (83.0-100.0); Mean Platelet Volume 9.7 fL (9.4-12.4); Monocytes # 0.7 K/mcL (0.0-1.3); Monocytes % 7.3 %; Neutrophils # 4.9 K/mcL (1.6-8.9); Platelet Count 235 K/mcL (140-400); Red Blood Count 4.96 M/mcL (4.19-5.50); Red Cell Distribution Width 12.4 % (11.5-14.5); Segmented Neutrophils % 55.2 %
[2016-11-24 05:08] LABS: BUN/Creatinine Ratio 16 (6-26); Blood Urea Nitrogen 20 mg/dL (8-26); Calcium 9.7 mg/dL (8.6-10.8); Carbon Dioxide 27 mEq/L (19-29); Chloride 101 mEq/L (98-109); Glucose 162 mg/dL (70-99); Magnesium 2.1 mg/dL (1.6-2.6); Osmolality,Calculated 290 (280-300); Phosphorous 4.7 mg/dL (2.3-4.7); Sodium 137 mEq/L (136-145); eGFR For African Americans > 60 (> 60); eGFR For Non-African Americans 60 (> 60)
[2016-11-24] MEDS: *HR* Heparin 5,000 UNIT/ML VIAL SQ SCH ×2 (06:15→18:17)
[2016-11-24] MEDS: Insulin LISPRO 300 UNITS/3 ML VIAL SQ SCH ×7 (07:31→22:33)
[2016-11-24] MEDS: Piperacillin/Tazobactam 3.375 GM in D5% in Water (Mini-Bag+) 100 ML IVPB SCH ×2 (07:52→16:14)
--- NOTE | 2016-11-24 08:04 | ENT - Progress Note ---
Date of Encounter: 11/24/16 Time of Encounter: 07:30 - Assessment and Plan (1) Otitis media Current Visit: Yes Status: Acute Persistent R AOM and R OE. On Ciprodex and Zosyn/Vanc. Awaiting culture results. Still looks the same as yesterday. CT didn't show coalescence of the mastoid or even complete opacification. No soft tissue disease. No facial nerve effect or meingeal signs. Normal WBC and afebrile. 1. Continue IV ABx, drop tx 2. Will take to the OR today for R tube placement due to persistent canal inflamation, pain, tenderness Please call with questions. Giacomo Whatley MD [phone] Qualifiers: Otitis media type: suppurative Laterality: right Chronicity: acute Recurrence: not specified as recurrent Spontaneous tympanic membrane rupture: without spontaneous rupture Qualified Code(s): H66.001 - Acute suppurative otitis media without spontaneous rupture of ear drum, right ear Subjective Patient reports: no new complaints, other (stable from yesterday, still w/ throbbing and fullness on the R) Objective Initial Vital Signs Temp Pulse Resp BP Pulse Ox 97.7 F 74 16 203/83 96 11/21/16 11:53 11/21/16 11:53 11/21/16 11:53 11/21/16 11:53 11/21/16 11:53 - ENT Other (R otorrhea, suctioned; TM appears intact but surface is desquamated and TM weeping; no granulation; canal edema is stable and persistent; facial nerve intact) - Labs 11/24/16 04:24 11/24/16 04:24 Diabetes panel 11/24/16 Range/Units 04:24 Sodium 137 (136-145) mEq/L Potassium 4.0 (3.5-4.5) mEq/L Chloride 101 (98-109) mEq/L Carbon Dioxide 27 (19-29) mEq/L BUN 20 (8-26) mg/dL Creatinine 1.22 (0.72-1.25) mg/dL Glucose 162 H (70-99) mg/dL Calcium 9.7 (8.6-10.8) mg/dL Calcium panel 11/24/16 Range/Units 04:24 Calcium 9.7 (8.6-10.8) mg/dL Phosphorus 4.7 (2.3-4.7) mg/dL Pituitary panel 11/24/16 Range/Units 04:24 Sodium 137 (136-145) mEq/L Potassium 4.0 (3.5-4.5) mEq/L Chloride 101 (98-109) mEq/L Carbon Dioxide 27 (19-29) mEq/L BUN 20 (8-26) mg/dL Creatinine 1.22 (0.72-1.25) mg/dL Glucose 162 H (70-99) mg/dL Calcium 9.7 (8.6-10.8) mg/dL Adrenal panel 11/24/16 Range/Units 04:24 Sodium 137 (136-145) mEq/L Potassium 4.0 (3.5-4.5) mEq/L Chloride 101 (98-109) mEq/L Carbon Dioxide 27 (19-29) mEq/L BUN 20 (8-26) mg/dL Creatinine 1.22 (0.72-1.25) mg/dL Glucose 162 H (70-99) mg/dL Calcium 9.7 (8.6-10.8) mg/dL Consult Discharge Plan - Plan Referrals: Louie Perez MD [Primary Care Provider] - 11/30/16 3:00 pm
[2016-11-24] MEDS: Budesonide/Formoterol 80/4.5 MDI IH SCH ×2 (08:26→20:13)
[2016-11-24] MEDS: Azelastine 0.1% Nasal Spray 30 ML BOTTLE NS SCH ×2 (09:16→22:32)
[2016-11-24] MEDS: Fluticasone Propionate Nasal 50 MCG/SPRAY BOTTLE NS SCH (09:17)
[2016-11-24] MEDS: Ciprofloxacin/Dex *EAR* Susp 7.5 ML BOTTLE RIGHT EAR SCH ×2 (09:17→22:32)
[2016-11-24] MEDS: BuPROPion XL (24 HR) 150 MG TABLET PO SCH (09:18)
[2016-11-24] MEDS: Loratadine 10 MG TABLET PO SCH (09:20)
[2016-11-24] MEDS: Furosemide 40 MG TABLET PO SCH (09:20)
[2016-11-24] MEDS: Insulin DETEMIR 100 UNIT/ML X5UNITS SQ SCH ×4 (09:22→22:54)
[2016-11-24] MEDS: Vancomycin 1,250 MG in D5% in Water 250 ML IVPB SCH ×2 (11:03→22:54)
[2016-11-24] MEDS ORDERED: *HR* Succinylcholine 200 MG/10 ML VIAL IVP ONE (12:00)
[2016-11-24] MEDS ORDERED: *HR* Propofol 200 MG/20 ML VIAL IVP ONE (12:00)
[2016-11-24] MEDS ORDERED: Ondansetron 4 MG/2 ML VIAL ONE (12:00)
[2016-11-24] MEDS ORDERED: *HR* FentaNYL (PF) 100 MCG/2 ML VIAL ONE (12:00)
[2016-11-24] MEDS ORDERED: Dexamethasone 4 MG/ML VIAL ONE (12:00)
[2016-11-24] MEDS ORDERED: Lidocaine -MPF 2% 2 ML VIAL ONE (12:01)
[2016-11-24] MEDS ORDERED: *HR* Rocuronium Bromide 50 MG/5 ML VIAL ONE (12:02)
[2016-11-24] MEDS ORDERED: Ciprofloxacin/Dex *EAR* Susp 7.5 ML BOTTLE ONE (12:32)
[2016-11-24] MEDS ORDERED: Oxymetazoline Nasal SPRAY BOTTLE NS ONE (12:32)
[2016-11-24] MEDS ORDERED: *HR* Promethazine 25 MG/ML VIAL IVP PRN (12:50)
[2016-11-24] MEDS ORDERED: *HR* HYDROmorphone (PF) 1 MG/ML SYRINGE IVP PRN (12:50)
--- NOTE | 2016-11-24 13:13 | ENT - Procedure Note ---
Date of procedure: 11/24/16 Pre-op diagnosis: Right acute otitis media Post-op diagnosis: same Procedure: Procedure - R tympanostomy tube placment Findings - inferior tympanic membrane perforation, grommet placed Anesthesia - General via LMA Complications - none EBL - none Surgeon - Giacomo Whatley History - Mr. Vernon is a 66 y/o male who presented to the [facility] practice on 11/18/16 with a week of R ear drainage, pain and muffled hearing. He had been given oral Cipro and an antibiotic drop to the right ear. This all started after a R ear irrigation/cerumen cleaning. He had a wick placed and Ciprodex started and was told to go to the ER if not better by the next day. It improved but he followed up on 11/21 with persistent discomfort and trouble controlling his sugars and blood pressure. He was admitted for IV antibiotics, glucose control and a culture was performed. He improved initially but continued to have drainage and discomfort from the R ear. There was mild mastoid pain. A CT temporal bones showed fluid filling the mastoid and middle ear. I was unable to see a perforation on the ear drum due to the tortuous and swollen ear canal. There was no granulation tissue in the ear canal and no meningeal signs. On 11/24/16 we made the decision to place a formal ear tube on the right ear in attempt to allow formal egress of this fluid/infection. After describing the risks/benefits/alternatives he agreed to the right ear tube placement. Procedure: On 11/24/16 Mr. Jeff Vernon was brought to the operating room and laid in supine position on the operating table. He was sedated and intubated with a LMA. A time-out was performed to confirm the correct patient, site and procedure. I then used the operative microscope to inspect the ear canal. I stented open the ear canal with a speculum and suctioned out otorrhea and squamous debris off the ear canal. On the inferior tympanic membrane there was a perforation. Fluid was suctioned from the middle ear and a grommet tympanostomy tube was placed. It was suctioned for patency. Ciprodex drops were placed in the right ear canal. This concluded the procedure. He was then weaned from anesthesia, extubated and transferred to his bed and PACU in a stable manner. He tolerated the procedure well without complication. I performed the entire procedure myself. Implants: R grommet tympanostomy tube Surgeon: Giacomo Whatley Estimated blood loss (cc): 0 Condition: stable
--- NOTE | 2016-11-24 14:10 | Anesthesia Evaluation Post Op ---
Date of Encounter: 11/24/16 Time of Encounter: 13:30 - Vital Signs Vital Signs: Last Vital Signs Temp 99.9 F H 11/24/16 13:40 Pulse 91 11/24/16 13:40 Resp 16 11/24/16 13:40 BP 157/86 11/24/16 13:40 Pulse Ox 97 11/24/16 13:40 - Lungs Lungs: Clear Ascult./Percussion - Airway Airway: Non-obstructed - Cardiovascular Regular Rate - Mental Status Mental Status: Alert & Oriented, Answers Appropriately - Pain Pain Scale: 2 - Nausea Vomiting Nausea Vomiting: Not Present - Hydration Hydration: Ice chips - Discharge PostOp Status: Transfer Patient to floor
[2016-11-24] MEDS: *HR* OxyCODONE/APAP 7.5/325 TABLET PO PRN ×2 (15:13→22:53)
--- NOTE | 2016-11-24 15:41 | Internal Med Progress Note ---
Date of Encounter: 11/24/16 Time of Encounter: 15:10 - Assessment and plan (1) Otitis media Current Visit: Yes Status: Acute Assessment and plan: ENT consultation appreciated with Dr. Whatley s/p R tube placement in right ear (11/24/16) Will continue IV abx and drop tx f/u cultures Pain control (adjusted pain medications) Qualifiers: Otitis media type: suppurative Laterality: right Chronicity: acute Recurrence: not specified as recurrent Spontaneous tympanic membrane rupture: without spontaneous rupture Qualified Code(s): H66.001 - Acute suppurative otitis media without spontaneous rupture of ear drum, right ear (2) Mastoiditis of right side Current Visit: Yes Status: Acute Assessment and plan: CT of internal auditory canal noted: NO erosive changes reported continue management as listed above (3) COPD (chronic obstructive pulmonary disease) Current Visit: Yes Status: Acute Assessment and plan: Not in acute exacerbation continue bronchodilator support as needed continue home dosing of O2 supplementation as needed Bipap at bedtime Qualifiers: COPD type: chronic bronchitis Chronic bronchitis type: simple Qualified Code(s): J41.0 - Simple chronic bronchitis (4) DVT prophylaxis Current Visit: Yes Status: Acute Assessment and plan: Heparin SQ (5) Essential hypertension Current Visit: Yes Status: Acute Assessment and plan: continue home medications continue Hydralazine 10mg IV q6h PRN SBP>160 continue to monitor BP closely (6) Uncontrolled type 2 diabetes mellitus Current Visit: Yes Status: Acute Assessment and plan: Blood glucose within acceptable range continue Levemir to 118units BID continue Humalog 5units TIDAC will continue to monitor fingerstick and blood glucose continue sliding scale insulin algorithm Qualifiers: Diabetes mellitus complication status: with ophthalmic complications Diabetes mellitus complication detail: with diabetic retinopathy Diabetic retinopathy severity: with unspecified retinopathy severity Diabetes mellitus macular edema: without macular edema Diabetes mellitus longterm insulin use: with longterm use Laterality: unspecified laterality Qualified Code(s): E11.319 - Type 2 diabetes mellitus with unspecified diabetic retinopathy without macular edema; E11.65 - Type 2 diabetes mellitus with hyperglycemia; Z79.4 - residential (current) use of insulin - Subjective Interval history: Patient seen and examined with family present at bedside. Patient is s/p R tube placement in right ear due to persistent canal inflammation by Dr. Whatley. Pt tolerated the procedure well and is current in no distress. - Constitutional Vitals: Temp Pulse Resp BP Pulse Ox 97.5 F L 80 18 154/79 97 11/24/16 14:00 11/24/16 14:00 11/24/16 14:00 11/24/16 14:00 11/24/16 14:00 General appearance: Present: cooperative, A&O X 3, pleasant, no acute distress, obese, answers questions appropriately - Head Head exam: Present: atraumatic, normocephalic - Eye Eye exam: Present: normal appearance, conjuntiva pink, sclera anicteric - Respiratory Respiratory exam: Present: CTAB. Absent: respiratory distress, wheezes - Cardiovascular Cardiovascular exam: Present: RRR, +S1, +S2. Absent: diastolic murmur, gallop, rubs, systolic murmur - GI/Abdominal GI/Abdominal exam: Present: distended (obese), normal bowel sounds, soft, no peritoneal signs. Absent: tenderness - Extremities Exam Extremities exam: Present: warm, radial pulses palpable and symetrical. Absent : calf tenderness, pedal edema - Neurological Exam Neurological exam: Present: alert, oriented X3 - Psychiatric Psychiatric exam: Present: normal affect, normal mood Internal Medicine: Result - Labs CBC & Chem 7: 11/24/16 04:24 11/24/16 04:24 Labs: Short CBC 11/24/16 Range/Units 04:24 WBC 8.9 (4.3-11.1) K/mcL Hgb 14.2 (12.9-16.9) g/dL Hct 41.6 (37.5-50.1) % Plt Count 235 (140-400) K/mcL Neutrophils # 4.9 (1.6-8.9) K/mcL BMP 11/24/16 04:24 Sodium 137 Potassium 4.0 Chloride 101 Carbon Dioxide 27 BUN 20 Creatinine 1.22 Glucose 162 H Calcium 9.7 Consult Discharge Plan - Plan Referrals: Louie Perez MD [Primary Care Provider] - 11/30/16 3:00 pm
[2016-11-24] MEDS: traZODone 50 MG TABLET PO SCH (22:52)
[2016-11-25] MEDS: Piperacillin/Tazobactam 3.375 GM in D5% in Water (Mini-Bag+) 100 ML IVPB SCH ×2 (00:41→10:29)
[2016-11-25 05:38] LABS: Basophils % 0.5 %; Eosinophils # 0.2 K/mcL (0.0-0.6); Eosinophils % 2.6 %; Hematocrit 40.6 % (37.5-50.1); Hemoglobin 13.8 g/dL (12.9-16.9); Immature Granulocytes % 0.9 % (0-4); Lymphocytes # 2.5 K/mcL (0.6-4.6); Lymphocytes % 29.6 %; Mean Corpuscular Hemoglobin 28.5 pg (28.0-33.3); Mean Corpuscular Volume 83.7 fL (83.0-100.0); Mean Platelet Volume 9.8 fL (9.4-12.4); Monocytes # 0.6 K/mcL (0.0-1.3); Monocytes % 6.8 %; Neutrophils # 5.1 K/mcL (1.6-8.9); Platelet Count 241 K/mcL (140-400); Red Blood Count 4.85 M/mcL (4.19-5.50); Red Cell Distribution Width 12.4 % (11.5-14.5); Segmented Neutrophils % 59.6 %
[2016-11-25 05:54] LABS: BUN/Creatinine Ratio 14 (6-26); Blood Urea Nitrogen 20 mg/dL (8-26); Calcium 8.8 mg/dL (8.6-10.8); Carbon Dioxide 28 mEq/L (19-29); Chloride 97 mEq/L (98-109); Glucose 284 mg/dL (70-99); Magnesium 1.8 mg/dL (1.6-2.6); Osmolality,Calculated 295 (280-300); Phosphorous 3.9 mg/dL (2.3-4.7); Potassium 4.3 mEq/L (3.5-4.5); Sodium 136 mEq/L (136-145); eGFR For African Americans > 60 (> 60); eGFR For Non-African Americans 52 (> 60)
--- NOTE | 2016-11-25 07:57 | ENT - Progress Note ---
Date of Encounter: 11/25/16 Time of Encounter: 07:30 - Assessment and Plan (1) Otitis media Current Visit: Yes Status: Acute Persistent R AOM and R OE. On Ciprodex and Zosyn/Vanc. Tube placed yesterday through a perforation previously unable to be seen given the canal edema and limitations of exam in the clinic/bedside. Otorrhea persists but he is improving clinically - no mastoid tenderness, decreased pain in general. 1. Ok to d/c home with Augmentin x 10 days and Ciprodex as written 2. Will see next week in f/u - Mon or Tue - and instructed patient to go to the ER should he experience any fevers, increased pain, neck stiffness, swelling/ tenderness of the skin around his ear. He expressed understanding. Please call with questions. Thank you for taking care of him. Giacomo Whatley MD [phone] Qualifiers: Otitis media type: suppurative Laterality: right Chronicity: acute Recurrence: not specified as recurrent Spontaneous tympanic membrane rupture: with spontaneous rupture Qualified Code(s): H66.011 - Acute suppurative otitis media with spontaneous rupture of ear drum, right ear Subjective Patient reports: no new complaints, feels better, pain is less (decreased ear pain, doesn't feel as much drainage is coming out) Objective Initial Vital Signs Temp Pulse Resp BP Pulse Ox 97.7 F 74 16 203/83 96 11/21/16 11:53 11/21/16 11:53 11/21/16 11:53 11/21/16 11:53 11/21/16 11:53 - General physical appearance no distress - ENT Other (Facial nerve intact, persistent drainage from the R ear, canal less swollen, no mastoid tenderness) - Labs 11/25/16 04:19 11/25/16 04:19 Diabetes panel 11/25/16 Range/Units 04:19 Sodium 136 (136-145) mEq/L Potassium 4.3 (3.5-4.5) mEq/L Chloride 97 L (98-109) mEq/L Carbon Dioxide 28 (19-29) mEq/L BUN 20 (8-26) mg/dL Creatinine 1.38 H (0.72-1.25) mg/dL Glucose 284 H (70-99) mg/dL Calcium 8.8 (8.6-10.8) mg/dL Calcium panel 11/25/16 Range/Units 04:19 Calcium 8.8 (8.6-10.8) mg/dL Phosphorus 3.9 (2.3-4.7) mg/dL Pituitary panel 11/25/16 Range/Units 04:19 Sodium 136 (136-145) mEq/L Potassium 4.3 (3.5-4.5) mEq/L Chloride 97 L (98-109) mEq/L Carbon Dioxide 28 (19-29) mEq/L BUN 20 (8-26) mg/dL Creatinine 1.38 H (0.72-1.25) mg/dL Glucose 284 H (70-99) mg/dL Calcium 8.8 (8.6-10.8) mg/dL Adrenal panel 11/25/16 Range/Units 04:19 Sodium 136 (136-145) mEq/L Potassium 4.3 (3.5-4.5) mEq/L Chloride 97 L (98-109) mEq/L Carbon Dioxide 28 (19-29) mEq/L BUN 20 (8-26) mg/dL Creatinine 1.38 H (0.72-1.25) mg/dL Glucose 284 H (70-99) mg/dL Calcium 8.8 (8.6-10.8) mg/dL Consult Discharge Plan - Plan Referrals: Louie Perez MD [Primary Care Provider] - 11/30/16 3:00 pm
[2016-11-25] MEDS: *HR* Heparin 5,000 UNIT/ML VIAL SQ SCH (10:17)
[2016-11-25] MEDS: BuPROPion XL (24 HR) 150 MG TABLET PO SCH (10:20)
[2016-11-25] MEDS: Furosemide 40 MG TABLET PO SCH (10:20)
[2016-11-25] MEDS: Loratadine 10 MG TABLET PO SCH (10:21)
[2016-11-25] MEDS: Ciprofloxacin/Dex *EAR* Susp 7.5 ML BOTTLE RIGHT EAR SCH (10:22)
[2016-11-25] MEDS: Fluticasone Propionate Nasal 50 MCG/SPRAY BOTTLE NS SCH (10:22)
[2016-11-25] MEDS: Azelastine 0.1% Nasal Spray 30 ML BOTTLE NS SCH (10:23)
[2016-11-25] MEDS: Insulin LISPRO 300 UNITS/3 ML VIAL SQ SCH ×2 (10:24→10:25)
[2016-11-25] MEDS: Insulin DETEMIR 100 UNIT/ML X5UNITS SQ SCH ×2 (10:34→10:35)
[2016-11-25] MEDS: Vancomycin 1,250 MG in D5% in Water 250 ML IVPB SCH (10:38)
[2016-11-25 11:19] VITALS: BP 158/80
--- NOTE | 2016-11-25 11:46 | Discharge Summary ---
Date of Encounter: 11/25/16 Time of Encounter: 11:42 - Discharge Diagnosis (1) Otitis media Priority: Primary Status: Acute Qualifiers: Otitis media type: suppurative Laterality: right Chronicity: acute Recurrence: not specified as recurrent Spontaneous tympanic membrane rupture: with spontaneous rupture Qualified Code(s): H66.011 - Acute suppurative otitis media with spontaneous rupture of ear drum, right ear (2) Mastoiditis of right side Priority: Primary Status: Acute (3) COPD (chronic obstructive pulmonary disease) Priority: Secondary Status: Chronic Qualifiers: COPD type: chronic bronchitis Chronic bronchitis type: simple Qualified Code(s): J41.0 - Simple chronic bronchitis (4) DVT prophylaxis Priority: Secondary Status: Acute (5) Essential hypertension Priority: Secondary Status: Chronic (6) Uncontrolled type 2 diabetes mellitus Priority: Secondary Status: Chronic Qualifiers: Diabetes mellitus complication status: with ophthalmic complications Diabetes mellitus complication detail: with diabetic retinopathy Diabetic retinopathy severity: with unspecified retinopathy severity Diabetes mellitus macular edema: without macular edema Diabetes mellitus terminal clerk insulin use: with terminal clerk use Laterality: unspecified laterality Qualified Code(s): E11.319 - Type 2 diabetes mellitus with unspecified diabetic retinopathy without macular edema; E11.65 - Type 2 diabetes mellitus with hyperglycemia; Z79.4 - FDC (current) use of insulin - Discharge Medications Prescriptions: Ciprofloxacin [Cipro] 500 mg PO BID #20 tablet Ciprofloxacin/Dex *EAR* Susp [Ciprodex *EAR* Susp] 4 drop RIGHT EAR BID #1 bottle Home Medications: Albuterol Sulfate [Proair Hfa] 2 puff IH Q6H PRN 01/15/16 [History] Bupropion HCl [Wellbutrin Xl] 300 mg PO QAM 01/15/16 [History] Fluticasone/Salmeterol [Advair 250-50 Diskus] 1 each IH BID 01/15/16 [History] Furosemide [Lasix] 40 mg PO DAILY 01/15/16 [History] Glimepiride [Amaryl] 2 mg PO BID 01/15/16 [History] Insulin DETEMIR [Levemir Flextouch] 150 unit SQ BID 01/15/16 [History] Insulin LISPRO [Humalog Kwikpen U-100] 102 unit SQ BID 01/15/16 [History] Loratadine [Claritin] 10 mg PO DAILY 01/15/16 [History] Losartan Potassium [Cozaar] 100 mg PO DAILY 01/15/16 [History] Mometasone Furoate [Nasonex] 2 spray NS DAILY PRN 01/15/16 [History] Omeprazole [PriLOSEC] 40 mg PO DAILY 01/15/16 [History] Oxygen 4 l NS AD 01/15/16 [History] Potassium Chloride [K-Tab ER] 20 meq PO DAILY 01/15/16 [History] Ranitidine HCl [Zantac] 150 mg PO BID 01/15/16 [History] Saxagliptin HCl [Onglyza] 5 mg PO DAILY 01/15/16 [History] Simvastatin [Zocor] 40 mg PO DAILY 01/15/16 [History] Tizanidine HCl 4 mg PO HS PRN 01/15/16 [History] OxyCODONE/APAP 10/325 [Percocet 10/325 MG] 1 each PO Q6HR PRN #15 tablet [Rx] Azelastine 0.1% Nasal [place] [Astelin] 2 spray NS BID 11/21/16 [History] Benzonatate [Tessalon] 200 mg PO TID PRN 11/21/16 [History] Fluticasone Propionate Nasal [Flonase] 2 spray NS DAILY 11/21/16 [History] HYDROcodone BIT/Homatropine LQ [Hycodan Syrup] 5 mg PO HS PRN 11/21/16 [History] Ibuprofen [Motrin] 600 mg PO TID PRN 11/21/16 [History] Metformin HCl [Glucophage] 1,000 mg PO BID 11/21/16 [History] Omalizumab [XOLAIR (For Outpatient Infusion)] 150 mg SQ Q2W 11/21/16 [History] Trazodone HCl 100 mg PO HS 11/21/16 [History] Ciprofloxacin [Cipro] 500 mg PO BID #20 tablet 11/25/16 [Rx] Ciprofloxacin/Dex *EAR* Susp [Ciprodex *EAR* Susp] 4 drop RIGHT EAR BID #1 bottle 11/25/16 [Rx] Allergies/Adverse Reactions: Allergies lisinopril Adverse Reaction (Verified 11/21/16 20:11) Swelling of Lip/Tongue/Throat Procedures/tests Complete & Pending: Procedures Performed prior 72 hours Category Date Time Status CT internal auditory canals BI [CT] Stat Cat Scan 11/22/16 15:14 Completed Date of admission: 11/21/16 21:50 Primary care physician: Louie Perez MD Consults: ENT: Dr. Giacomo Whatley Discharging clinician: Adele Eng Anticipated date of discharge: 11/25/16 - Patient Status Disposition: Home, Self-Care Condition: Good Functional capacity at discharge: independent ambulation Overall status at discharge: patient is back to baseline - Discharge Instructions Follow Up With: Louie Perez MD [Primary Care Provider] - 11/30/16 3:00 pm Additional Instructions: Please follow up with Dr. Whatley within five days after your discharge from the hospital. Please follow up with your primary care physician within one week after your discharge from the hospital. Please inform your primary care physician about your poorly controlled blood glucose. Continue to monitor fingerstick glucose at home after discharge. Please seek medical help immediately if you experience headache, fevers, ear swelling, worsening ear discharge. Please resume all your home medications as prescribed by your primary care physician. - Diet and Activity Activity: resume usual activities as tolerated Diet: diabetic diet Hospital course: Mr. Vernon is a 66 year old male with PMH of type 2DM who was transferred by ENT (Dr. Whatley) for management of severe otitis media after failing outpatient therapy. Patient was started on IV antibiotics and underwent CT studies to rule out any bony erosions of the temporal bone. Despite abx therapy , patient continued to have persistent pain due to which he had an ear tube placed by Dr. Whatley. Patient tolerated the procedure well and has improvement in his symptoms. As per the cultures from the ENT office patient is growing pseudomonas which is susceptable to Ciprofloxacin. Patient will be discharged to home today with Cipro PO and Cipro drops. He is to follow up with ENT within five days after his discharge from the hospital. Patient demonstrates understanding of his diagnosis and discharge plan. - Time Spent with Patient Total time spent providing and/or coordinating discharge services: Greater than 30 minutes - Constitutional Vitals: Temp Pulse Resp BP Pulse Ox 97.4 F L 82 16 158/80 97 11/25/16 11:18 11/25/16 11:18 11/25/16 11:18 11/25/16 11:18 11/25/16 11:18 General appearance: Present: cooperative, A&O X 3, pleasant, no acute distress, obese, answers questions appropriately - Head Head exam: Present: atraumatic, normocephalic - Eye Eye exam: Present: normal appearance, conjuntiva pink, sclera anicteric - Respiratory Respiratory exam: Present: CTAB. Absent: accessory muscle use, rales, rhonchi, wheezes - Cardiovascular Cardiovascular exam: Present: RRR, +S1, +S2. Absent: diastolic murmur, gallop, rubs, systolic murmur - GI/Abdominal GI/Abdominal exam: Present: distended (obese), normal bowel sounds, soft, no peritoneal signs. Absent: tenderness - Extremities Exam Extremities exam: Present: warm, radial pulses palpable and symetrical. Absent : calf tenderness, cyanotic, pedal edema - Neurological Exam Neurological exam: Present: alert, oriented X3, no focal deficits - Psychiatric Psychiatric exam: Present: normal affect, normal mood
[2016-11-25] MEDS: Budesonide/Formoterol 80/4.5 MDI IH SCH (12:14)
[2016-11-25] MEDS ORDERED: Aminoglycoside Consult 1 EACH MC ONE (12:49)
== END 2016-11-25 12:50 | disposition home or self-care (01) | DRG 133 ==
LOC: 3BNU → SUATTDRO 21:50
PROVIDERS: ADMIT Internal Medicine; ATTEND Internal Medicine